=== PATIENT | male | born 1945 | race Caucasian/White ===

== ENCOUNTER 2021-06-29 16:58 | Observation (INO) ==
[2021-06-29 20:29] LABS: Basophils % 0.4 %; Eosinophils # 0.2 K/mcL (0.0-0.6); Eosinophils % 2.2 %; Hematocrit 43.6 % (37.5-50.1); Hemoglobin 14.6 g/dL (12.9-16.9); Immature Granulocytes % 0.5 % (0-4); Lymphocytes % 38.7 %; Mean Corpuscular HGB Conc 33.5 g/dL (31.6-35.5); Mean Corpuscular Hemoglobin 30.1 pg (28.0-33.3); Mean Corpuscular Volume 89.9 fL (83.0-100.0); Mean Platelet Volume 8.8 fL (9.4-12.4); Monocytes # 0.8 K/mcL (0.0-1.3); Monocytes % 10.4 %; Neutrophils # 3.7 K/mcL (1.6-8.9); Platelet Count 247 K/mcL (140-400); Red Blood Count 4.85 M/mcL (4.19-5.50); Red Cell Distribution Width 12.9 % (11.5-14.5); Segmented Neutrophils % 47.8 %; White Blood Count 7.8 K/mcL (4.3-11.1)
[2021-06-29 20:50] LABS: Alanine Aminotransferase 25 Units/L (7-52); Albumin 4.2 g/dL (3.5-5.7); Albumin/Globulin Ratio 1.4 (1.1-2.2); Alkaline Phosphatase 57 Units/L (34-104); Aspartate Amino Transferase 18 Units/L (13-39); BUN/Creatinine Ratio 14 (6-26); Bilirubin,Direct 0.1 mg/dL (0.0-0.2); Bilirubin,Indirect 0.4 mg/dL (0.0-1.0); Bilirubin,Total 0.5 mg/dL (0.3-1.0); Blood Urea Nitrogen 21 mg/dL (8-23); Calcium 9.5 mg/dL (8.6-10.3); Carbon Dioxide 28 mEq/L (23-29); Chloride 105 mEq/L (98-107); Globulin 3.1 g/dL (2.4-3.5); Glucose 93 mg/dL (70-105); Lipase 35 Units/L (11-82); Osmolality,Calculated 291 (280-300); Potassium 3.9 mEq/L (3.5-5.1); Sodium 139 mEq/L (136-145); Total Protein 7.3 g/dL (6.4-8.9); Troponin I < 0.03 ng/mL (< 0.04); eGFR For African Americans 58 (> 60); eGFR For Non-African Americans 48 (> 60)
[2021-06-30 03:21] LABS: Influenza A PCR Negative (Negative); Influenza B PCR Negative (Negative); Resp. Syncytial Virus PCR Negative (Negative)
[2021-06-30 03:26] LABS: SARS-CoV-2 by PCR (In House) Negative (Negative)
[2021-06-30] MEDS ORDERED: Naloxone 0.4 MG/ML INJ IVP PRN (03:50)
[2021-06-30] MEDS ORDERED: Ondansetron 4 MG/2 ML VIAL IVP PRN (03:50)
[2021-06-30] MEDS ORDERED: Melatonin 3 MG TABLET PO PRN (03:50)
[2021-06-30] MEDS ORDERED: Acetaminophen 325 MG TABLET PO PRN (03:50)
[2021-06-30] MEDS ORDERED: 0.9 % Sodium Chloride 1,000 ML IVC ONE (03:52)
[2021-06-30] MEDS ORDERED: Regadenoson 0.4 MG/5 ML SYRINGE IVP ONE (08:35)
[2021-06-30 11:16] VITALS: BP 138/84; PULSE 74; TEMP 97.5; O2SAT 94
[2021-06-30] MEDS ORDERED: *HR* Heparin 5,000 UNIT/ML VIAL SQ SCH (18:00)
== END 2021-06-30 14:47 | disposition home or self-care (01) ==
LOC: EMEROOARM 16:58 → 4WAOSI 16:58 → SUATTDRO 06-30 02:35 → 4WAOSI 06-30 03:04
PROVIDERS: ADMIT Internal Medicine; ATTEND Internal Medicine